=== PATIENT | female | born 1970 | race Caucasian/White ===

== ENCOUNTER 2020-09-03 07:15 | Day surgery (SDC) | payer OTHER ==
[~2020-09-03] VITALS: Ht 170.2 cm; Wt 81.7 kg
[~2020-09-03 07:15] MED LIST: COZAAR50 MG PO; CYCLOBENZAPRINE10 MG PO; HYDROCODON-ACE1 EA11 PO; IBUPROFEN400 MG PO; INDAPAMIDE1.25 MG PO; NORCO 5-325 TA1 EACH PO; ONDANSETRON ODT8 MG PO; PERCOCET 10-321 EACH PO; PROMETHAZINE-COD5 ML PO; VERAPAMIL HCL120 MG PO; ZOFRAN ODT8 MG PO
[2020-09-03] MEDS ORDERED: ESTRADIOL0.5 MG PO (07:41)
--- NOTE | 2020-09-03 09:16 | NUR ---
09/03/20 0916 Felicitas Shepherd 0905- PT TO PACU IN LL POSITION. COUGHING AND COMPLAINING OF NAUSEA. REPULPING SUPERVISOR AT BEDISIDE AND NEW ORDERS RECEIVED. COLD WASH CLOTH AND COMFORT MEASURES PROVIDED. SPO2 >95% ON 3 L O2 VIA NC. PT DENIES PAIN. 0912- PT TALKING WITH RN AT BEDSIDE APPROPRIATELY. REPORTS NAUSEA HAS IMPROVED AND DENIES PAIN. BREATHING EASY AND UNLABORED. SPO2 >95% ON ROOM AIR. PT PASSING GAS.
--- NOTE | 2020-09-04 11:37 | OR ---
[facility] [address], [place] [address] Signed DATE OF OPERATION: 09/03/2020 SURGEON: Geo Paula MD PREOPERATIVE DIAGNOSES: 1. Left upper quadrant abdominal pain. 2. Anorexia with weight loss. 3. Change in bowel habits with diarrhea, constipation and ribbon like stool. POSTOPERATIVE DIAGNOSES: 1. Small hiatal hernia. 2. Minimal gastritis. 3. Minimal internal hemorrhoids. PROCEDURE: 1. EGD with CLOtest and biopsies of the duodenum, antrum and GE junction. 2. Colonoscopy without biopsy. ESTIMATED BLOOD LOSS: None. INDICATIONS: Eva is a 49-year-old female, asked to see me for upper and lower endoscopy. She has had troubles with the above symptoms. She is down 10 pounds. She even tried Levaquin on the remote possibility. She had diverticulitis. That did not help. She also talk about swelling in the left upper quadrant, but not necessarily pain. Her gallbladder ultrasound was unremarkable. CT scan of the abdomen and pelvis was unremarkable. Given those findings, she was asked to see me for the upper and lower endoscopy. She is yet to have her HIDA scan. In the office, I gave her pamphlets on both upper and lower endoscopy. She reminded me that Dr. Santy Miller is her father. He is now the medical assisting program director . She understands upper and lower endoscopy quite well. We reviewed the risks including, but not limited to gas bloating, crampy abdominal pain, bleeding, perforation requiring surgery, and missed diagnosis. We also discussed the need for the IV conscious sedation. She had expressed understanding and wished to proceed. DESCRIPTION OF PROCEDURE: Eva was taken into our endoscopy suite and placed in the supine semi-recumbent position. The posterior oropharynx was anesthetized with Hurricaine spray. A bite block was utilized for the case. She was given 7 mg of Versed and 150 mcg of fentanyl. She was still awake and talking to us and protecting her airway. We were unable to pass Electronically Signed By: GEO PAULA MD 09/03/20 1825 Electronically Signed By: GEO PAULA MD 09/04/20 1221 PATIENT NAME: EVA MILLER OPERATIVE REPORT DATE OF : 74 REPORT #: [id number] PHYSICIAN: GEO PAULA MD PCP: TEVIN HUGGINS MD REPORT IS CONFIDENTIAL AND NOT TO BE RELEASED WITHOUT AUTHORIZATION [facility] [address], [place] [address] Signed the gastroscope at that point. Consequently, we had an anesthesia provider come and help us with infusion of propofol. After that, we were able to pass the gastroscope down out into the third portion of the duodenum without difficulty. We took a biopsy of the duodenum for the history of diarrhea. Otherwise, the duodenum and pyloric channel were unremarkable. The stomach showed very mild erythematous changes. We took a biopsy from the antrum for CLOtest as well as pathologic review. Upon retroflexion of scope, she has just a small hiatal hernia. The scope was withdrawn up through the area of the GE junction, which was compliant without stricture. Very minimal disruption to the Z-line. No Ordoñez's mucosa. No gastric or esophageal varices. We went and took a biopsy along the edge of the Z-line. We saw no distal esophagitis. The middle and upper esophagus were unremarkable. After this, the gas was suctioned out and the gastroscope removed. Eva tolerated the procedure quite well. Eva was then rotated into the left lateral decubitus position. She was maintained on IV sedation with propofol per our nurse tool room supervisor. A digital rectal exam was performed and this was unremarkable. The adult colonoscope was introduced and advanced under direct visualization of camera up into the cecum without difficulty. Her prep was quite excellent. We could easily see the appendiceal orifice and the ileocecal valve. The scope was slowly withdrawn. We had taken pictures throughout for photodocumentation. We saw no pathology throughout the entire colon or rectum. She has a little bit angulation at the rectosigmoid junction. Upon retroflexion of scope, she does have minimal internal hemorrhoid tissue. After this, the gas was suctioned out and colonoscope removed. Eva tolerated the procedure quite well. RECOMMENDATIONS: I will see Eva back in my office in 7 to 14 days to review her results. She might consider a HIDA scan. Geo Paula MD ALB/ROSIEL /[id number] cc: Tevin Paula MD Electronically Signed By: GEO PAULA MD 09/03/20 1825 Electronically Signed By: GEO PAULA MD 09/04/20 1221 PATIENT NAME: EVA MILLER OPERATIVE REPORT DATE OF : 74 REPORT #: [id number] PHYSICIAN: GEO PAULA MD PCP: TEVIN HUGGINS MD REPORT IS CONFIDENTIAL AND NOT TO BE RELEASED WITHOUT AUTHORIZATION [facility] [address] [place] [place], [place] [address] Signed Copies: GEO PAULA MD ~ Electronically Signed By: GEO PAULA MD 09/03/20 1825 Electronically Signed By: GEO PAULA MD 09/04/20 1221 PATIENT NAME: EVA MILLER OPERATIVE REPORT DATE OF : 74 REPORT #: [id number] PHYSICIAN: GEO PAULA MD PCP: TEVIN HUGGINS MD REPORT IS CONFIDENTIAL AND NOT TO BE RELEASED WITHOUT AUTHORIZATION
--- NOTE | 2020-09-05 14:06 | PATH ---
[facility] [address] [place], [place] [address] Signed SPECIMEN(S): A DUODENUM SPECIMEN(S): B ANTRUM/PYLORUS SPECIMEN(S): C GE JUNCTION SPECIMEN SOURCE: A. DUODENUM B. ANTRUM/PYLORUS C. GE JUNCTION CLINICAL HISTORY: Left upper quadrant pain, bowel habit changes, history of diarrhea, gastritis, small hiatal hernia, minimal internal hemorrhoids. MICROSCOPIC DESCRIPTION: Histologic sections of all submitted blocks are examined by light microscopy. These findings, together with the gross examination, support the pathologic diagnosis. FINAL PATHOLOGIC DIAGNOSIS: A. 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 - Negative for dysplasia or malignancy. B. Stomach, antrum/pylorus, biopsy: - Antral mucosa with mild mucosal papillary congestion. - Fragments of duodenal type mucosa with no histopathologic abnormality. - Negative for Helicobacter organisms on HE stain. - Negative for dysplasia or malignancy. C. Gastroesophageal junction, biopsy: - Squamous mucosa with minimal reactive changes. - Fragment of denuded mucosa with intestinal-type glands, see Comments. - Negative for dysplasia or malignancy. COMMENT: Regarding specimen C: A fragment of mucosa with denuded surface epithelium is present separate but adjacent to the mildly reactive squamous mucosa. The denuded mucosal fragment contains intestinal type glands and Paneth cells. However, the degree of reactive changes in the squamous mucosa is minimal, a finding not expected to be associated with intestinal metaplasia. Correlation with endoscopic findings is recommended. NAL:cml:C2NR PATIENT NAME: HAILY MILLER PATHOLOGY DATE OF : 74 REPORT #: [id number] PHYSICIAN: EMPERATRIZ MAGANA PCP: LEONORA HUGGINS MD REPORT IS CONFIDENTIAL AND NOT TO BE RELEASED WITHOUT AUTHORIZATION [facility] [address] [place], [place] [address] Signed GROSS DESCRIPTION: Three specimens are received in three containers, labeled "TB." A. The specimen, labeled "TB, #1," and designated on the requisition "duodenum," is received in formalin and consists of one sams soft tissue fragment that measures 0.3 cm in greatest dimension. The specimen is entirely submitted in cassette (A1). B. The specimen, labeled "TB, #2," and designated on the requisition "antrum/pylorus," is received in formalin and consists of one sams soft tissue fragment that measures 0.2 cm in greatest dimension. The specimen is entirely submitted in cassette (B1). C. The specimen, labeled "TB, #3," and designated on the requisition "GE junction," is received in formalin and consists of one sams soft tissue fragment that measures 0.4 cm in greatest dimension. The specimen is entirely submitted in cassette (C1). AT (under the direct supervision of a pathologist) The Gross Description was prepared using a voice recognition system. The report was reviewed for accuracy; however, sound-alike word errors, addition and/or deletions may occur. If there is any question about this report, please contact Client Services. PERFORMING LABORATORY: The technical component was performed by [employer], [address] [place] [id number] (Solo Truck Driver: Mesha Kim MD; CLIA# [id number]). [facility], [address] [place] [address], [place] [address] (CLIA# [id number]). Diagnostician: Dayanara Villalobos MD Pathologist Electronically Signed 09/05/2020 Copies: ~ PATIENT NAME: HAILY MILLER PATHOLOGY DATE OF : 74 REPORT #: [id number] PHYSICIAN: EMPERATRIZ PATHOLOGY PCP: LEONORA HUGGINS MD REPORT IS CONFIDENTIAL AND NOT TO BE RELEASED WITHOUT AUTHORIZATION
== END 2020-09-03 09:40 | disposition home or self-care (01) ==
LOC: OPS 07:15 → DS 07:19 → OPS 09:00
PROVIDERS: ATTEND Colon & Rectal Surgery
PROC: 0DB78ZX Excision of Stomach, Pylorus, Via Natural or Artificial Opening Endoscopic, Diagnostic (ICD-10-PCS; 2020-09-03)
PROC: 0DB48ZX Excision of Esophagogastric Junction, Via Natural or Artificial Opening Endoscopic, Diagnostic (ICD-10-PCS; 2020-09-03)
PROC: 0DJD8ZZ Inspection of Lower Intestinal Tract, Via Natural or Artificial Opening Endoscopic (ICD-10-PCS; principal; 2020-09-03 09:00)
PROC: 0DB98ZX Excision of Duodenum, Via Natural or Artificial Opening Endoscopic, Diagnostic (ICD-10-PCS; 2020-09-03 09:00)
DX: K64.8 Other hemorrhoids (principal); K31.89 Other diseases of stomach and duodenum; K44.9 Diaphragmatic hernia without obstruction or gangrene; R63.4 Abnormal weight loss; I10 Essential (primary) hypertension; Z79.899 Other long term (current) drug therapy; Z88.0 Allergy status to penicillin; Z91.030 Bee allergy status; Z68.27 Body mass index [BMI] 27.0-27.9, adult
CPT/HCPCS: 81001; 86677; J2250; J2405; J2704; J3010; J7121

== ENCOUNTER 2020-11-18 07:50 | Day surgery (SDC) | payer OTHER ==
[~2020-11-18] VITALS: Ht 170.2 cm; Wt 77.3 kg
[~2020-11-18 07:50] MED LIST changes: +ESTRADIOL0.5 MG PO
[2020-11-18] MEDS ORDERED: NORCO 10-325 T1 EACH PO (12:06)
[2020-11-18] MEDS ORDERED: PROMETHAZINE HC25 M1 PO (12:06)
--- NOTE | 2020-11-19 06:17 | OR ---
[facility] [facility] [address] [place], [place] [address] Signed DATE OF OPERATION: 11/18/2020 SURGEON: Geo Garcia MD PREOPERATIVE DIAGNOSES: 1. Chronic cholecystitis. 2. Biliary dyskinesia. POSTOPERATIVE DIAGNOSES: 1. Chronic cholecystitis. 2. Biliary dyskinesia. PROCEDURE: Laparoscopic cholecystectomy without intraoperative cholangiogram. ESTIMATED BLOOD LOSS: None. INDICATIONS: Eva is a 49-year-old female, who I have been asked to see me in the office for left upper quadrant abdominal pain. The CT scan and her upper abdominal ultrasound were negative. Upper and lower endoscopy were also negative. She was sent for her HIDA scan and her gallbladder ejection fraction was low at 21%. More importantly, the injection of CCK reproduced her symptoms. In the office, I had given to Eva a booklet on the gallbladder. I reviewed the location and function of the gallbladder. We discussed laparoscopic versus open cholecystectomy. She understands the expected intraop and postop course. We did review the risks including, but not limited to bleeding, infection, scarring, change in contour of the skin, damage to bowel, damage to main bile duct, incisional hernias, and inability to relieve her symptoms. She had expressed understanding and wished to proceed. PROCEDURE NOTE: Eva was taken into the operating room and placed in supine position under general endotracheal tube anesthesia. She was given preoperative antibiotics along with subcutaneous heparin. SCDs were utilized. She was then prepped and draped in the usual sterile fashion. All trocars were placed in usual positions under direct visualization of camera without difficulty. We had taken pictures throughout for photodocumentation. The gallbladder was grasped and elevated in the right upper quadrant. The triangle of Calot was dissected free and 2 clips had been placed across the cystic artery and it was divided. We made several attempts to pass the intraoperative cholangiocatheter down the Electronically Signed By: GEO GARCIA MD 11/19/20 0617 PATIENT NAME: EVA MILLER OPERATIVE REPORT DATE OF : 74 REPORT #: [id number] PHYSICIAN: GEO GARCIA MD PCP: LEONORA HUGGINS MD REPORT IS CONFIDENTIAL AND NOT TO BE RELEASED WITHOUT AUTHORIZATION [facility] [address], [place] [address] Signed cystic duct. However, this was unsuccessful due to the valves of Heister. Consequently, we abandoned our intraoperative cholangiogram. The cystic duct stump was secured with a PDS Endoloop and 2 clips were placed across the cystic duct stump to haris its location. The gallbladder was then slowly and carefully removed from the gallbladder fossa with the help of cautery and placed into an EndoCatch bag. The right upper quadrant was irrigated and suctioned out until clear. We then used our laparoscopic suturing device to pass 0-Vicryl suture on either side of the fascia of the subxiphoid trocar site. This was then tied down to close this fascia primarily. After this, all the gas was allowed to escape and all the trocars were removed along with the gallbladder. The gallbladder had been opened on the back table by our circulating nurse, it had cholesterolosis. After this, the fascia of the supraumbilical trocar site was closed with interrupted [id number] and simple 0-Vicryl sutures. Local anesthetic was injected into all trocar sites. Each trocar site was irrigated and suctioned out until clear. The skin and dermis of each trocar site were closed with interrupted 3-0 subcuticular Monocryl sutures. Dry gauze and tape were applied to all incisions. After this, Eva was awakened from anesthesia, extubated in the OR, and taken to the recovery room in stable condition. Geo Garcia MD ALB/MODL /[id number] cc: Geo Garcia MD Copies: GEO GARCIA MD ~ Electronically Signed By: GEO GARCIA MD 11/19/20 0617 PATIENT NAME: EVA MILLER OPERATIVE REPORT DATE OF : 74 REPORT #: [id number] PHYSICIAN: GEO GARCIA MD PCP: LEONORA HUGGINS MD REPORT IS CONFIDENTIAL AND NOT TO BE RELEASED WITHOUT AUTHORIZATION
--- NOTE | 2020-11-23 12:15 | PATH ---
[facility] [address] [place], [place] [address] Signed SPECIMEN(S): A GALLBLADDER SPECIMEN SOURCE: A. GALLBLADDER CLINICAL HISTORY: Laparoscopic cholecystectomy. Acute cholecystitis. FINAL PATHOLOGIC DIAGNOSIS: Gallbladder, cholecystectomy: - Chronic cholecystitis with cholesterolosis. NAL:cml:C2NR MICROSCOPIC EXAMINATION: Histologic sections of all submitted blocks are examined by light microscopy. These findings, together with the gross examination, support the pathologic diagnosis. GROSS DESCRIPTION: The specimen, labeled "TB, A," and designated on the requisition "gallbladder," is received in formalin and consists of Specimen: Previously opened gallbladder. Dimensions: 8.1 x 3.2 x 2.5 cm. Serosa: Smooth and violaceous with attached abundant adipose tissue. Cystic Duct: Unobstructed. Calculi: Not grossly identified. Mucosa: Green-brown and velvety. Wall thickness: Up to 1.5 cm including adipose tissue. Lymph node: No pericystic lymph nodes are grossly identified. Additional: None. [employer] Chair sections are submitted in cassette (A1). AT (under the direct supervision of a pathologist) The Gross Description was prepared using a voice recognition system. The report was reviewed for accuracy; however, sound-alike word errors, addition and/or deletions may occur. If there is any question about this report, please contact Client Services. PERFORMING LABORATORY: The technical component was performed by [employer], [address] [place] [id number] (Event Representative: Mesha Kim MD; CLIA# [id number]).Professional interpretation was performed by PATIENT NAME: HAILY MILLER PATHOLOGY DATE OF : 74 REPORT #: [id number] PHYSICIAN: [facility] PCP: LEONORA HUGGINS MD REPORT IS CONFIDENTIAL AND NOT TO BE RELEASED WITHOUT AUTHORIZATION [facility] [address] [place], [place] [address] Signed [facility], [facility], [address] [facility] [address], [place], [place] [address] (CLIA# [id number]). Diagnostician: Dayanara Villalobos MD Pathologist Electronically Signed 11/23/2020 Copies: ~ PATIENT NAME: HAILY MILLER PATHOLOGY DATE OF : 74 REPORT #: [id number] PHYSICIAN: [facility] PCP: LEONORA HUGGINS MD REPORT IS CONFIDENTIAL AND NOT TO BE RELEASED WITHOUT AUTHORIZATION
== END 2020-11-18 13:20 | disposition home or self-care (01) ==
LOC: DS 07:50
PROVIDERS: ATTEND Colon & Rectal Surgery
DX: K81.1 Chronic cholecystitis (principal); K82.8 Other specified diseases of gallbladder; I10 Essential (primary) hypertension; G43.909 Migraine, unspecified, not intractable, without status migrainosus; J45.909 Unspecified asthma, uncomplicated; Z87.891 Personal history of nicotine dependence; Z88.0 Allergy status to penicillin; Z88.8 Allergy status to other drugs, medicaments and biological substances; Z91.030 Bee allergy status
CPT/HCPCS: 00790; J0131; J0330; J0690; J1100; J1644; J1885; J2250; J2405; J2550; J2704; J2765; J3010; J7121

== ENCOUNTER 2022-06-23 17:39 | Emergency (ER) | payer OTHER ==
[~2022-06-23] VITALS: Ht 170.2 cm; Wt 78.5 kg
[~2022-06-23 17:39] MED LIST changes: +NORCO 10-325 T1 EACH PO; +PROMETHAZINE HC25 M1 PO
[2022-06-23] MEDS ORDERED: PROTONIX40 MG PO (23:35)
[2022-06-23] MEDS ORDERED: ONDANSETRON ODT8 MG PO (23:35)
== END 2022-06-23 23:52 | disposition home or self-care (01) ==
LOC: ED 17:39
DX: R10.12 Left upper quadrant pain (principal); Z88.8 Allergy status to other drugs, medicaments and biological substances; Z88.0 Allergy status to penicillin; Z91.030 Bee allergy status; Z79.899 Other long term (current) drug therapy
CPT/HCPCS: 36415; 74177; 80053; 81001; 83690; 84703; 85025; 96361; 96375; 96376; 99284-25; A9270; J1170; J2405; J7030; Q9967

== ENCOUNTER 2023-02-28 18:25 | Emergency (ER) | payer OTHER ==
[~2023-02-28] VITALS: Ht 170.2 cm; Wt 79.4 kg
[~2023-02-28 18:25] MED LIST changes: +PROTONIX40 MG PO
[2023-02-28] MEDS ORDERED: OMEPRAZOLE20 MG PO (19:18)
[2023-02-28] MEDS ORDERED: CEPHALEXIN500 M1 PO (21:21)
[2023-02-28 21:44] VITALS: BP 136/80
== END 2023-02-28 21:44 | disposition home or self-care (01) ==
LOC: ED 18:25
DX: N12 Tubulo-interstitial nephritis, not specified as acute or chronic (principal); Z87.442 Personal history of urinary calculi; Z79.899 Other long term (current) drug therapy; Z88.0 Allergy status to penicillin; Z88.8 Allergy status to other drugs, medicaments and biological substances; Z91.030 Bee allergy status
CPT/HCPCS: 36415; 74176; 80053; 81001; 84703; 85025; A9270; J0696; J1885; J2405

== ENCOUNTER 2024-05-13 05:36 | Day surgery (SDC) | payer OTHER ==
[2024-05-02 15:33] VITALS: BP 154/103
[~2024-05-13] VITALS: Ht 170.2 cm; Wt 78.0 kg
[~2024-05-13 05:36] MED LIST changes: +CEPHALEXIN500 M1 PO; +LACTATED RINGER'S 1,000 ML IV SCH; +OMEPRAZOLE20 MG PO; +PROGESTERONE100 MG PO; +VITAMIN D3125 MC1 PO
[2024-05-13 06:08] VITALS: BP 131/84
[2024-05-13] MEDS ORDERED: DIAZEPAM2 MG PO (06:14)
[2024-05-13] MEDS ORDERED: [UNRECOGNIZED DRUG - OTHER] PO (06:18)
[2024-05-13] MEDS ORDERED: iopamidoL 30 ML VIAL ONE (06:58)
[2024-05-13] MEDS ORDERED: IBLOOD GLUCOSE TEST STRIP 1 EA TEST VI PRN ×2 (07:00→09:30)
[2024-05-13] MEDS ORDERED: CEFAZOLIN SODIUM 2 GM/20 ML SYR IV SCH (07:00)
[2024-05-13] MEDS ORDERED: LIDOCAINE HCL 1% 5 ML SDV INJ ONE (07:00)
[2024-05-13] MEDS ORDERED: fentaNYL citrate 100 MCG/2 ML VIAL ONE (07:31)
[2024-05-13] MEDS ORDERED: MIDAZOLAM HCL 2 MG/2 ML VIAL ONE (07:31)
[2024-05-13] MEDS ORDERED: LIDOCAINE HCL 2% 5 ML SDV ONE (07:33)
[2024-05-13] MEDS ORDERED: propofoL 200 MG/20 ML VIAL ONE (07:33)
[2024-05-13] MEDS ORDERED: DEXAMETHASONE SOD PHOS 4 MG/ML VIAL ONE (07:33)
[2024-05-13] MEDS ORDERED: ondansetron HCL 4 MG/2 ML VIAL ONE (07:33)
[2024-05-13] MEDS ORDERED: KETOROLAC TROMETHAMINE 30 MG/ML VIAL ONE (07:33)
--- NOTE | 2024-05-13 07:33 | NUR ---
VISITED DURING SPIRITUAL CARE ROUNDS. PT ADMITTED ANXIETY, SUPPORTED BY DAUGHTER NADIA IN ROOM. PROVIDED ANXIETY CONTAINMENT, NORMALIZED PT EXPERIENCE, PROVIDED SUPPORTIVE PRESENCE, PRAYER, HOSPITALITY. PT INDICATED REDUCED ANXIETY, EXPRESSED GRATITUDE FOR VISIT.
[2024-05-13] MEDS ORDERED: ACETAMINOPHEN 1,000 MG/100 ML VIAL ONE (07:38)
[2024-05-13] MEDS ORDERED: HYDROmorphone HCL 1 MG/ML SYR IV PRN (08:00)
[2024-05-13] MEDS ORDERED: ondansetron HCL 4 MG/2 ML VIAL IV PRN ×2 (08:00→09:30)
[2024-05-13] MEDS ORDERED: PHENAZOPYRIDINE HCL 95 MG TAB PO PRN (08:00)
[2024-05-13] MEDS ORDERED: KETOROLAC TROMETHAMINE 15 MG/ML VIAL IV PRN (08:00)
[2024-05-13] MEDS ORDERED: OXYCODONE/APAP 5/325 TAB PO PRN (08:00)
[2024-05-13] MEDS ORDERED: ePHEDrine sulfate 50 MG/ML AMP ONE (08:28)
--- NOTE | 2024-05-13 09:16 | NUR ---
05/13/24 0916 Torres Smith 0907: PT ARRIVED TO PACU VIA STRETCHER. PT ON RA. PT DROWSY BUT ASKING QUESTIONS. PT EMOTIONAL AND CRYING UPON ARRIVAL TO PACU. PEDICURIST REPORTS PT BEING EMOTIONAL IS NORMAL FOR PATIENT AFTER SURGERY.
[2024-05-13] MEDS ORDERED: NALOXONE HCL 0.4 MG SYR IV PRN (09:30)
[2024-05-13] MEDS ORDERED: fentaNYL citrate 50 MCG/ML SDV IV PRN (09:30)
[2024-05-13 09:36] VITALS: BP 113/64
--- NOTE | 2024-05-13 09:40 | NUR ---
PT RETURNED TO DS FROM PACU AT APPROX 0940. REPORT RECEIVED FROM CARDIAC NURSE SPECIALIST. IV NOTED TO BE SL'D WHEN PT RETURNED TO DS. NO DRAINAGE NOTED FROM URETHRA. PT IS AAOX4. DAUGHTER IN ROOM AT PTS BEDSIDE. VSS. PT SATS GREATER THAN 95% ON RA. PT DENIES PAIN AND N/V WHEN ASKED. WATER, APPLESAUCE, AND GLORIA CRACKERS PROVIDED TO PT. CALL LIGHT WITHIN PT REACH. BILAT SIDERAILS IN PLACE. BED IN LOW POSITION WITH WHEELS LOCKED. ALL QUESTIONS ANSWERED.
--- NOTE | 2024-05-13 10:20 | NUR ---
PT UP TO RESTROOM. PT ABLE TO VOID 300ML OF PEACH COLORED URINE. NO VISBILE BLOOD CLOTS SEEN. PT AMBULATED BACK TO HER ROOM INDEPENDANTLY WITH NURSE SBA.
[2024-05-13 10:40] VITALS: BP 129/83
--- NOTE | 2024-05-13 10:45 | NUR ---
INTO PTS ROOM FOR ROUTINE REASSESSMENT. PT WITH REPORTS OF NEEDING TO VOID AGAIN. PT REPORTS SOME URGENCY AND FREQUENCY ALONG WITH BURNING WITH URINATION. PT REASSURED THIS IS EXPECTED AFTER HER PROCEDURE. PT TO RESTROOM INDEPENDENTLY. VSS TAKEN. IV SITE ASSESSED. PT W/O DRAINAGE FROM URETHRA. PT REMAINS AAOX4 AND IS ABLE TO MAKE NEEDS KNOWN. PT DENIES ANY PAIN, BUT DOES REPORT SOME DISCOMFORT WITH URINATION. PT OFFERED PYRIDIUM AND ACCEPTED FOR RELIEF OF URINARY SX'S. CALL LIGHT WITHIN REACH. ALL QUESTIONS ANSWERED. PTS DAUGHTER AT BEDSIDE.
--- NOTE | 2024-05-13 11:30 | NUR ---
RX'S GIVEN TO PTS DAUGHTER TO TAKE TO PHARMACY TO BE FILLED. PT WITH CALL LIGHT AND PERSONAL BELONGINGS WITHIN REACH ON BED AND DRESSING BEFORE DISCHARGE.
[2024-05-13 11:40] VITALS: BP 134/80
--- NOTE | 2024-05-13 11:40 | NUR ---
INTO PTS ROOM FOR ROUTINE REASSESSMENT AND DISCHARGE TEACHING. IV SITE ASSESSED. PT WITHOUT BLEEDING OR DRAINAGE FROM URETHRA. PT DOES REPORT IMPROVEMENT IN FREQ AND BURNING WITH URINATION AFTER TAKING PYRIDIUM DOSE EARLIER. VSS. PT MAINTAINING O2 AT 99-100% ON RA. SHE REMAINS AAOX3 AND ABLE TO MAKE HER NEEDS KNOWN. DENIES N/V WHEN ASKED. PT HAS MET DC CRITERIA TO DISCHARGE. DISCHARGE INSTRUCTIONS GONE OVER WITH PT. PT INFORMED DR. RODRIGUEZ'S OFFICE WILL REACHOUT TO SCHEDULE HER 6 WEEK F/U APPT. ALSO INFORMED PT THAT DR. MAC HAS SENT A REFERRAL FOR HER INTO A SPECIALIST WHO SHOULD ALSO CALL HER TO SCHEDULE ONCE THEY HAVE RECEIVED AND PROCESSED REFERRAL. PT DENIES ANY FURTHER QUESTIONS OR NEEDS AT THIS TIME AND VERBALIZED UNDERSTANDING OF DC INSTRUCTIONS.
--- NOTE | 2024-05-13 12:00 | NUR ---
1150-IV REMOVED FROM L WRIST. TIP OBSERVED TO BE INTACT. PRESSURE DRSG APPLIED USING GAUZE AND COBAN. CALL LIGHT WITHIN REACH. PTS DAUGHTER ON HER WAY BACK. PT WILL CALL NURSE WHEN DAUGHTER ARIVES OUT FRONT. 1200-PT DISCHARGED FROM VIA TO PASSENGER SIDE OF HER DAUGHTERS CAR. ALL PERSONAL BELONGINGS TAKEN WITH HER. PT DENIES ANY FURTHER QUESTIONS OR NEEDS AT THIS TIME.
== END 2024-05-13 12:00 | disposition home or self-care (01) ==
LOC: OPS 05:36 → DS 05:36 → OPS 07:30 → DS 07:30 → OPS 12:00 → DS 12:35
PROVIDERS: ATTEND Urology
PROC: 0WHR8YZ Insertion of Other Device into Genitourinary Tract, Via Natural or Artificial Opening Endoscopic (ICD-10-PCS; 2024-05-13)
PROC: BT1DZZZ Fluoroscopy of Right Kidney, Ureter and Bladder (ICD-10-PCS; principal; 2024-05-13 07:30)
DX: N20.0 Calculus of kidney (principal); N13.5 Crossing vessel and stricture of ureter without hydronephrosis; I10 Essential (primary) hypertension; G43.909 Migraine, unspecified, not intractable, without status migrainosus; Z87.891 Personal history of nicotine dependence; Z88.0 Allergy status to penicillin; Z88.8 Allergy status to other drugs, medicaments and biological substances; Z79.899 Other long term (current) drug therapy
CPT/HCPCS: 00910; 74420; 76830; 76856; 84703; C1769; C2617; J0131; J0690; J1100; J1885; J2001; J2250; J2405; J2704; J3010; J7121; Q9967